=== PATIENT | male | born 1960 | race Caucasian/White ===

== ENCOUNTER 2018-03-03 21:42 | Observation (INO) | payer OTHER ==
[2018-03-03] MEDS ORDERED: ASPIRIN 81 MG CHEWABLE TABLETS PO ONE (21:50)
--- NOTE | 2018-03-03 21:51 | PDOC ---
Rapid Medical Evaluation Time Seen by Provider: 03/03/18 21:47 Medical Evaluation: Allergies Allergy/AdvReac Type Severity Reaction Status Date / Time No Known Allergies Allergy Verified 12/08/13 00:58 patient presents with a chief complaint of left sided chest pain radiating down left arm for the past 2 hours. Admits it's worse with movement and deep breaths. Pertinent findings: reproducible chest wall pain with palpation of left chest wall Orders: EKG, CXR, labs, ASA Patient will proceed to the ER for further evaluation. Discharge Disposition - Diagnosis Chest pain - Referrals - Patient Instructions - Post Discharge Activity
[2018-03-03 21:55] VITALS: BMI 32.8
[2018-03-03 22:24] LABS: BASO % 0.6 % (0-2.0); EOS % 0.7 % (0-4.5); HEMOGLOBIN 14.3 GM/dL (11.7-16.9); LYMPH % 33.8 % (8-40); MCH 28.9 pg (25.7-33.7); MCHC 33.3 g/dl (32.0-35.9); MEAN CELL VOLUME 86.8 fl (80-96); MEAN PLT VOLUME 8.6 fl (7.5-11.1); MONO % 8.6 % (3.8-10.2); NEUT % 56.3 % (42.8-82.8); PLATELET COUNT 285 K/MM3 (134-434); RBC 4.95 M/mm3 (4.00-5.60); RDW 13.4 % (11.9-15.9); WHITE BLOOD COUNT 10.3 K/mm3 (4.0-10.0)
[2018-03-03] MEDS ORDERED: ASPIRIN 325 MG TABLET ONE (22:38)
[2018-03-03 22:57] LABS: ALK PHOS 89 U/L (45-117); ANION GAP 7 MMOL/L (8-16); BILIRUBIN,TOTAL 0.4 mg/dL (0.2-1); BLOOD UREA NITROGEN 29 mg/dL (7-18); CALCIUM 8.9 mg/dL (8.5-10.1); CHLORIDE 106 mmol/L (98-107); CO2 32 mmol/L (21-32); CREATININE 1.4 mg/dL (0.55-1.3); GLUCOSE,RANDOM 104 mg/dL (74-106); SGOT/AST 22 U/L (15-37); SGPT/ALT 29 U/L (13-61); SODIUM 144 mmol/L (136-145); TOT PROT 7.1 g/dl (6.4-8.2)
[2018-03-03] MEDS ORDERED: KETOROLAC TROMETHAMINE 30 MG/1 ML VIAL IM ONE (23:17)
--- NOTE | 2018-03-03 23:25 | PDOC ---
Attending Attestation - Resident Resident Name: MarquitaNat - ED Attending Attestation I have performed the following: I have examined & evaluated the patient, The case was reviewed & discussed with the resident, I agree w/resident's findings & plan, Exceptions are as noted - HPI HPI: 03/04/18 00:07 Patient is a 57 y/o male with a past medical history of HTN, HLD, and diabetes who presents to the emergency department for evaluation of left sided pleuritic chest pain radiating down left arm for the past 2 hours, exacerbated with movement. Pain started while pt was watching TV. Also reports SOB. Pain is worse with lying down. Denies recent URI sxs. Has no hx similar sxs. No recent travel or immobility. Has not seen a occupational therapy co director recently. Distant hx smoking. 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 Denies drug use. Took 1 ASA when pain occurred. - Physicial Exam PE: 03/04/18 00:14 GENERAL: Awake, alert, and fully oriented, in no acute distress HEAD: No signs of trauma EYES: PERRLA, EOMI, sclera anicteric, conjunctiva clear ENT: Auricles normal inspection, hearing grossly normal, nares patent, oropharynx clear without exudates. Moist mucosa NECK: Normal ROM, supple, no lymphadenopathy, JVD, or masses LUNGS: Breath sounds equal, clear to auscultation bilaterally. No wheezes, and no crackles HEART: Regular rate and rhythm, normal S1 and S2, no murmurs, rubs or gallops ABDOMEN: Soft, nontender, normoactive bowel sounds. No guarding, no rebound. No masses EXTREMITIES: Normal range of motion, no edema. No clubbing or cyanosis. No cords, erythema, or tenderness NEUROLOGICAL: Normal speech, cranial nerves intact, negative pronator drift, 5/ 5 strength in all 4 extremities, normal sensation to light touch in all 4 extremities, normal cerebellar exam, normal gait, normal reflexes and tone SKIN: Warm, Dry, normal turgor, no rashes or lesions noted. - Medical Decision Making 03/04/18 00:15 57-year-old male with a history of hypertension, hyperlipidemia, diabetes presents emergency Department with sudden onset left-sided chest pain radiating to the left arm. Vitals unremarkable. Exam unremarkable. EKG is nonischemic. Given risk factors and story, heart score is 5. PE is also on the differential, patient is low risk by well's criteria. D-dimer is pending. Will reassess. 03/04/18 01:02 pt admitted for further mgmt Case discussed in detail with admitting physician including history, physical exam and ancillary studies. Admitting physician has assumed care for the patient, will follow all pending diagnostics and will complete the evaluation and treatment. Heart Score/ECG Review - History History: Highly suspicious - Electrocardiogram EKG: Normal - Age Age: 45-65 - Risk Factors Based on the list above the patient has:: >/=3 risk factors or Hx atherosclerotic disease - Troponin Troponin: </= normal limit - Score Heart Score - Total: 5 #1 03/04/18 00:14 Twelve-lead EKG was performed and reviewed by me. Normal sinus rhythm, rate 82. Normal axis and intervals. No ST elevations. T wave flattening in lead 3.
--- NOTE | 2018-03-03 23:46 | PDOC ---
History of Present Illness - General Chief Complaint: Pain Stated Complaint: CHEST PAIN Time Seen by Provider: 03/03/18 21:47 History Source: Patient Exam Limitations: No Limitations - History of Present Illness Initial Comments: 03/03/18 23:40 HPI: Pt is a 57yo m with PMH of HTN, HLD, DM presenting to ED for chest pain x2h. Pt said he was watching TV when he felt a sudden sharp pain on the L side of his chest associated with numbness and tingling down his left arm. Pain radiates to the left side of his back, and is worsened with breathing and movements. Pt said he took 3 Advil Liquigels which he is unsure if it helped him. He denies diaphoresis during the event. Since pain is illicited when he takes breaths, pt feels like he is short of breath. He denies neck pain, headache, changes in vision, n/v/d, abdominal pain, fevers, chills, cough, leg swelling, calf pain. No hx of SC or CVA. Uncle had an SC. No recent surgeries, or travel, no history of cancer. He never had pain like this before. PCP: Dr. Lee PMH: As per HPI. PSH: cholecystectomy, splenectomy Meds: None Allergies: None Known Social: quit smoking 18 years ago Past History - Past Medical History Allergies/Adverse Reactions: Allergies Allergy/AdvReac Type Severity Reaction Status Date / Time No Known Allergies Allergy Verified 03/03/18 21:47 Home Medications: Ambulatory Orders Amlodipine/Valsartan [Exforge 5-160 mg Tablet] 1 tab PO DAILY 12/08/13 Lovastatin 20 mg PO DAILY 12/08/13 levoFLOXacin [Levaquin -] 500 mg PO DAILY #4 tablet 12/17/13 metroNIDAZOLE [Flagyl -] 500 mg PO TID #10 tablet 12/17/13 Anemia: No Asthma: No Cardiac Disorders: No COPD: No CHF: No Diabetes: Yes (Pre-diabetic) HTN: Yes Hypercholesterolemia: Yes Liver Disease: No - Surgical History Abdominal Surgery: Yes (Splenectomy) - Family Disease History Family Disease History: CA: Mother (lung cancer), Respiratory: Father (emphysema ) - Immunization History Immunization Up to Date: No - Suicide/Smoking/Psychosocial Hx Smoking History: Never smoked Have you smoked in the past 12 months: No Information on smoking cessation initiated: No Hx Alcohol Use: No Drug/Substance Use Hx: No Substance Use Type: None Hx Substance Use Treatment: No Review of Systems - Review of Systems Able to Perform ROS?: Yes Comments:: 03/03/18 23:46 ROS: Constitutional: No fevers, chills, fatigue, malaise HEENT: No visual changes, headache, neck pain Cardiovascular:chest pain. NO syncope, edema Respiratory: SOB. No Cough, Hemoptysis Gastrointestinal: No Abdominal pain, Nausea, Vomiting, Constipation, Diarrhea Genitourinary: No Dysuria, Frequency Musculoskeletal: L chest pain. Neurologic: Numbness/tingling in L hand. No Headache, Dizziness, Weakness *Physical Exam - Vital Signs Last Vital Signs Temp Pulse Resp BP Pulse Ox 97.9 F 90 20 133/91 97 03/03/18 21:48 03/03/18 21:48 03/03/18 21:48 03/03/18 21:48 03/03/18 21:48 - Physical Exam Comments: 03/03/18 23:48 Physical Exam: Pt in bed, looked uncomfortable. General Appearance: Nourished. HEENT: Atraumatic, normocephalic, EOMI, YESSICA, No Conjunctival Injection, Scleral Icterus, Pharyngeal Erythema, Tonsillar Exudate, Tonsillar Erythema. Neck: No Cervical Lymphadenopathy, No tracheal deviation Respiratory/Chest: Lungs Clear, Normal Breath Sounds. No Crackles, Rales, Rhonchi, Wheezing Cardiovascular: Regular Rhythm, Regular Rate, Peripheral pulses palpable bilaterally. No JVD, Murmur, Gallops, Rubs, Carotid Bruit, Edema, Gastrointestinal/Abdominal: Normal Bowel Sounds, Soft. No Guarding, Rebound, Tenderness Musculoskeletal: Restricted ROM in L arm due to pain. L chest wall tender to palpation. No CVA Tenderness Extremity: Normal Capillary Refill Integumentary: Normal Color, Dry, Warm. No rashes, lesions Neurologic: prenatal nurse II-XII NML intact, Fully Oriented, Alert, Normal Mood/Affect, Normal Response, Motor Strength 5/5, Full sensation, 2+ Reflexes Heart Score/ECG Review - History History: Highly suspicious - Electrocardiogram EKG: Normal - Age Age: 45-65 - Risk Factors Risk Factors Heart Score: Yes Hx Hypercholesterolemia, Yes Hx Hypertension, Yes Hx Diabetes Based on the list above the patient has:: >/=3 risk factors or Hx atherosclerotic disease - Troponin Troponin: </= normal limit - Score Heart Score - Total: 5 ED Treatment Course - LABORATORY CBC & Chemistry Diagram: 03/03/18 22:10 03/03/18 22:10 - ADDITIONAL ORDERS Additional order review: Laboratory Results 03/03/18 22:10 Sodium 144 Potassium 4.0 Chloride 106 Carbon Dioxide 32 Anion Gap 7 L BUN 29 H Creatinine 1.4 H Creat Clearance w eGFR 51.87 Random Glucose 104 Calcium 8.9 Total Bilirubin 0.4 AST 22 ALT 29 Alkaline Phosphatase 89 Creatine Kinase 167 Creatine Kinase Index 1.5 CK-MB (CK-2) 2.6 Troponin I < 0.02 Total Protein 7.1 Albumin 4.0 03/03/18 22:10 RBC 4.95 MCV 86.8 MCHC 33.3 RDW 13.4 MPV 8.6 Neutrophils % 56.3 D Lymphocytes % 33.8 D Monocytes % 8.6 Eosinophils % 0.7 Basophils % 0.6 - Medications Given in the ED: ED Medications Discontinued Medications Generic Name Dose Route Start Last Admin Trade Name Freq PRN Reason Stop Dose Admin Aspirin 324 mg 03/03/18 21:50 03/03/18 22:50 Asa - PO 03/03/18 21:51 324 mg ONCE ONE Administration Medical Decision Making - Medical Decision Making 03/04/18 00:26 57yo m with PMH of htn, hld, dm presenting to ED with sudden onset CP that started while he was watching tv. pain is left sided radiates to his back and is associated with l arm numbness/tingling. Pleuritic in nature and movement illicits pain. Vitals: wnl, afebrile PE: L chest wall tender to palpation Labs, ekg and cxr ordered by RME. EKG: nsr, no eduardo or depressions, T wave inversion in V1, flattened T in III. normal pr and qt, narrow qrs. Trop negative. CXR: compared to prior, no acute changes. Labs: WBC- 10.3, troponin negative, all other labs wnl. Pt given ASA in ED and orderd Toradol for pain. Due to pleuritic nature of chest pain, PERC positive and low risk Wells, will order D-dimer to rule out PE. HEART score of 5, pt will be admitted obs if D-dimer negative. 03/04/18 00:36 D-dimer negative. Will admit pt to tele/obs due to nature of chest pain and risk factors. Pt admitted to hospitalist, will be transferred to Dr. Alexia benavides in the morning. *DC/Admit/Observation/Transfer Diagnosis at time of Disposition: Chest pain Qualifiers: Chest pain type: unspecified Qualified Code(s): R07.9 - Chest pain, unspecified - Discharge Dispostion Condition at time of disposition: Stable Decision to Admit order: Yes - Referrals Referrals: Kelby Lee MD [Primary Care Provider] - - Patient Instructions - Post Discharge Activity
[2018-03-04] MEDS ORDERED: KETOROLAC TROMETHAMINE 30 MG/1 ML VIAL ONE ×2 (00:08→13:22)
--- NOTE | 2018-03-04 01:12 | HP ---
CHIEF COMPLAINT: Chest Pain PCP: Dr. Queenie Lee HISTORY OF PRESENT ILLNESS: 57 y/o man with a past medical history of Hypertension, Hyperlipidemia, Pre- Diabetes. Who presents to the ED with lest sided chest pain with radiation to the L- arm and back 2hrs prior to arrival. Patient reports pain increases on movement, and on deep inspiration. 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 Patient denies fever, chills, cough, palpitations, N/V/D, constipation, dysuria. ER course was notable for: (1) Trop I < 0.02 (2) EKG- NSR no LYNDON, TWI lead V, flattened T in III (3) Chest Xray image no infiltrate or effusion Recent Travel: None PAST MEDICAL HISTORY: HTN HLD Pre-Diabetes Morbid Obesity BMI 32.9 (with Co-Morbidities) PAST SURGICAL HISTORY: Cholecystectomy Splenectomy Social History: Smoking: Tobacco, former 18 yrs ago Alcohol: Denies use Drugs: Denies use Family History: Father: Emphysema Mother: Lung Ca Uncle: MA Allergies No Known Allergies Allergy (Verified 03/03/18 21:47) HOME MEDICATIONS: Home Medications Medication Instructions Recorded Amlodipine/Valsartan [Exforge 1 tab PO DAILY 12/08/13 5-160 mg Tablet] Lovastatin 20 mg PO DAILY 12/08/13 levoFLOXacin [Levaquin -] 500 mg PO DAILY #4 tablet 12/17/13 metroNIDAZOLE [Flagyl -] 500 mg PO TID #10 tablet 12/17/13 REVIEW OF SYSTEMS CONSTITUTIONAL: Absent: fever, chills, diaphoresis, generalized weakness, malaise, loss of appetite, weight change HEENT: Absent: rhinorrhea, nasal congestion, throat pain, throat swelling, difficulty swallowing, mouth swelling, ear pain, eye pain, visual changes CARDIOVASCULAR: chest pain Absent: syncope, palpitations, irregular heart rate, lightheadedness, peripheral edema RESPIRATORY: shortness of breath Absent: cough, dyspnea with exertion, orthopnea, wheezing, stridor, hemoptysis GASTROINTESTINAL: Absent: abdominal pain, abdominal distension, nausea, vomiting, diarrhea, constipation, melena, hematochezia GENITOURINARY: Absent: dysuria, frequency, urgency, hesitancy, hematuria, flank pain, genital pain MUSCULOSKELETAL: back pain, Left arm pain Absent: myalgia, arthralgia, joint swelling, neck pain SKIN: Absent: rash, itching, pallor HEMATOLOGIC/IMMUNOLOGIC: Absent: easy bleeding, easy bruising, lymphadenopathy, frequent infections ENDOCRINE: Absent: unexplained weight gain, unexplained weight loss, heat intolerance, cold intolerance NEUROLOGIC: paresthesias Absent: headache, focal weakness, dizziness, unsteady gait, seizure, mental status changes, bladder or bowel incontinence PSYCHIATRIC: Absent: anxiety, depression, suicidal or homicidal ideation, hallucinations. PHYSICAL EXAMINATION Vital Signs - 24 hr 03/03/18 21:48 Temperature 97.9 F Pulse Rate 90 Respiratory 20 Rate Blood Pressure 133/91 O2 Sat by Pulse 97 Oximetry (%) GENERAL: Awake, alert, and fully oriented, in no acute distress. HEAD: Normal with no signs of trauma. EYES: Pupils equal, round and reactive to light, extraocular movements intact, sclera anicteric, conjunctiva clear. No lid lag. EARS, NOSE, THROAT: Ears normal, nares patent, oropharynx clear without exudates. Moist mucous membranes. NECK: Normal range of motion, supple without lymphadenopathy, JVD, or masses. LUNGS: Breath sounds equal, clear to auscultation bilaterally. No wheezes, and no crackles. No accessory muscle use. HEART: Regular rate and rhythm, normal S1 and S2 without murmur, rub or gallop. CP reproducible on palpation ABDOMEN: Obese, soft, nontender, not distended, normoactive bowel sounds, no guarding, no rebound, no masses. No hepatomegaly or splenomegaly. MUSCULOSKELETAL: Normal range of motion at RUE, RLE, LLE joints. No bony deformities or tenderness. No CVA tenderness. +LROM of LUE UPPER EXTREMITIES: 2+ pulses, warm, well-perfused. No cyanosis. No clubbing. No peripheral edema. LOWER EXTREMITIES: 2+ pulses, warm, well-perfused. No calf tenderness. No peripheral edema. NEUROLOGICAL: Cranial nerves II-XII intact. Normal speech. Gait not observed. PSYCHIATRIC: Cooperative. Good eye contact. Appropriate mood and affect. SKIN: Warm, dry, normal turgor, no rashes or lesions noted, normal capillary refill. Laboratory Results - last 24 hr 03/03/18 03/03/18 03/03/18 22:10 22:10 22:32 WBC 10.3 H RBC 4.95 Hgb 14.3 Hct 43.0 MCV 86.8 MCH 28.9 MCHC 33.3 RDW 13.4 Plt Count 285 D MPV 8.6 Absolute Neuts (auto) 5.8 Neutrophils % 56.3 D Lymphocytes % 33.8 D Monocytes % 8.6 Eosinophils % 0.7 Basophils % 0.6 Nucleated RBC % 0 D-Dimer < 200 Sodium 144 Potassium 4.0 Chloride 106 Carbon Dioxide 32 Anion Gap 7 L BUN 29 H Creatinine 1.4 H Creat Clearance w eGFR 51.87 Random Glucose 104 Calcium 8.9 Total Bilirubin 0.4 AST 22 ALT 29 Alkaline Phosphatase 89 Creatine Kinase 167 Creatine Kinase Index 1.5 CK-MB (CK-2) 2.6 Troponin I < 0.02 Total Protein 7.1 Albumin 4.0 ASSESSMENT/PLAN: This is a 57 y/o man with a PMHx of: HTN, HLD, Pre-Diabetes. Who presents to the ED with Pleuritic Chest Pain x last night. Placed in Tele Observation for Chest Pain for further evaluation of their emergent condition. FEN PO fluids as tolerated Replete lytes prn Low Na, Low Cholesterol Diet Code Status: Full Code Dispo: Observation Problem List - Problem (1) Chest pain Assessment/Plan: - r/o ACS - HEART Score 5 - MARIA INES Score 1 - Cardiac monitoring - Serial Enzymes - Chest Xray image reviewed - Appreciate Cardiology consult - Echo today - Lipid panel, HgbA1c, Mg, Phos in am - Continue Asa Code(s): R07.9 - CHEST PAIN, UNSPECIFIED Qualifiers: Chest pain type: unspecified Qualified Code(s): R07.9 - Chest pain, unspecified (2) Hypertension Assessment/Plan: - sub optimal - Monitor BP - Continue home med - Monitor renal function - Low Na Diet Code(s): I10 - ESSENTIAL (PRIMARY) HYPERTENSION (3) Pre-diabetes Assessment/Plan: - controlled - BGMs - Continue Metformin Code(s): R73.03 - PREDIABETES (4) Hyperlipidemia Assessment/Plan: - Lipid panel in AM - Continue Lovastatin - Monitor LFTs Code(s): E78.5 - HYPERLIPIDEMIA, UNSPECIFIED (5) DVT prophylaxis Assessment/Plan: - OOB - SCDs - Consider AC if LOS > 48 hrs Code(s): RKY9901 - Visit type - Emergency Visit Emergency Visit: Yes ED Registration Date: 03/03/18 Care time: The patient presented to the Emergency Department on the above date and was hospitalized for further evaluation of their emergent condition. - New Patient This patient is new to me today: Yes Date on this admission: 03/04/18 - Critical Care Critical Care patient: No
[2018-03-04 06:45] LABS: BASO % 0.6 % (0-2.0); EOS % 1.6 % (0-4.5); HEMATOCRIT 42.1 % (35.4-49); HEMOGLOBIN 13.9 GM/dL (11.7-16.9); LYMPH % 38.2 % (8-40); MCH 28.9 pg (25.7-33.7); MEAN CELL VOLUME 87.6 fl (80-96); MEAN PLT VOLUME 8.9 fl (7.5-11.1); MONO % 8.5 % (3.8-10.2); NEUT % 51.1 % (42.8-82.8); PLATELET COUNT 247 K/MM3 (134-434); RDW 13.4 % (11.9-15.9); WHITE BLOOD COUNT 8.1 K/mm3 (4.0-10.0)
[2018-03-04 07:07] LABS: ANION GAP 9 MMOL/L (8-16); BLOOD UREA NITROGEN 32 mg/dL (7-18); CALCIUM 8.5 mg/dL (8.5-10.1); CHLORIDE 109 mmol/L (98-107); CO2 25 mmol/L (21-32); GLUCOSE,RANDOM 112 mg/dL (74-106); MAGNESIUM 2.1 mg/dL (1.8-2.4); N-TERMINAL BNP 9.5 pg/ml (5-125); PHOSPHOROUS 3.8 mg/dL (2.5-4.9); POTASSIUM 3.7 mmol/L (3.5-5.1); SODIUM 143 mmol/L (136-145)
[2018-03-04 09:09] LABS: CHOLESTEROL 144 mg/dL (50-200); HDL CHOLESTEROL 27 mg/dL (40-60); TRIGLYCERIDES 461 mg/dL (0-150)
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
[2018-03-04] MEDS ORDERED: PATIENT'S OWN MEDICATION (NON-FORMULARY) (Amlodipine/Valsartan [Exforge 5-160 Mg Tablet] 1 PO SCH (10:00)
--- NOTE | 2018-03-04 10:07 | EKG ---
Test Reason : Blood Pressure : / mmHG Vent. Rate : 079 BPM Atrial Rate : 079 BPM P-R Int : 152 ms QRS Dur : 084 ms QT Int : 366 ms P-R-T Axes : 037 010 009 degrees QTc Int : 419 ms NORMAL SINUS RHYTHM NORMAL ECG WHEN COMPARED WITH ECG OF 09-DEC-2013 08:50, NO SIGNIFICANT CHANGE WAS FOUND Confirmed by CHRISTINA ORNELAS MD ([id number]) on 03/04/2018 10:06:41 AM Referred By: Confirmed By:CHRISTINA ORNELAS MD
[2018-03-04] MEDS ORDERED: amLODIPine BESYLATE 5 MG TABLET (FP) PO SCH ×2 (10:30→12:10)
[2018-03-04] MEDS ORDERED: VALSARTAN 160 MG TABLET (UD) PO SCH ×2 (10:30→13:00)
[2018-03-04] MEDS ORDERED: KETOROLAC TROMETHAMINE 30 MG/1 ML VIAL IVPUSH ONE (13:00)
[2018-03-04] MEDS ORDERED: CHLORTHALIDONE 25 MG TABLET PO SCH (13:00)
--- NOTE | 2018-03-04 14:53 | DS ---
Physical Examination Vital Signs: Vital Signs Temperature 98.3 F 03/04/18 00:15 Pulse Rate 70 03/04/18 06:08 Respiratory Rate 17 03/04/18 06:08 Blood Pressure 127/95 03/04/18 06:08 O2 Sat by Pulse Oximetry (%) 96 03/04/18 06:08 Constitutional: Yes: Well Nourished, No Distress, Calm Cardiovascular: Yes: WNL, Regular Rate and Rhythm, Other (mild ttp, left chest wall). No: Murmur Respiratory: Yes: WNL, Regular, CTA Bilaterally. No: Accessory Muscle Use, Tachypnea Gastrointestinal: Yes: WNL, Normal Bowel Sounds, Soft. No: Distention, Tenderness Renal/: Yes: WNL Musculoskeletal: Yes: WNL Extremities: Yes: WNL Edema: No Labs: CBC, BMP 03/04/18 06:00 03/04/18 06:00 Discharge Summary Reason For Visit: CHEST PAIN Current Active Problems Chest pain (Acute) Pre-diabetes (Acute) Hospital Course: 57 year old male admitted for evaluation of chest pain. all work up negative. pt evaluated by cardiology, trops negative, ekg without changes, echo neg. chest pain appears somewhat musculoskeletal in nature as it is reproducible. Considering pt's cardiac risk factors, recommend outpt cardiology follow up. Otherwise, pt is medically stable for discharge from hospital. F/u as directed. Condition: Stable - Instructions Diet, Activity, Other Instructions: may take motrin as needed for pain, take with food diabetic diet f/u as directed Referrals: Kelby Lee MD [Primary Care Provider] - 1 Week Aysha Wallace MD [Staff Physician] - 2 Weeks Disposition: HOME - Home Medications Comprehensive Discharge Medication List: Ambulatory Orders Amlodipine/Valsartan [Exforge 5-160 mg Tablet] 1 tab PO DAILY 12/08/13 Lovastatin 20 mg PO DAILY 12/08/13 Chlorthalidone [Hygroton -] 25 mg PO DAILY tablet 03/04/18 Metformin HCl [Metformin HCl ER] 500 mg PO DAILY 03/04/18
[2018-03-04 19:05] VITALS: BP 133/95; PULSE 82; TEMP 97.7
[2018-03-04] MEDS ORDERED: PATIENT'S OWN MEDICATION (NON-FORMULARY) (Lovastatin [Lovastatin] 20 MG) PO SCH (22:00)
[2018-03-05] MEDS ORDERED: amLODIPine BESYLATE 10 MG TABLET (FP) PO SCH (07:29)
--- NOTE | 2018-03-05 15:08 | ECHO ---
Version: 1 Name: VIOLETA DEL CID Exam: Adult Echocardiogram Study Date: 03/04/2018, 7:58 AM Age: 57 Years MMode/2D Measurements & Calculations IVSd: 1.06 cm LVIDs: 2.8 cm LVIDd: 4.0 cm LVPWd: 1.00 cm Ao root diam: 2.24 cm LA dimension: 3.0 cm Doppler Measurements & Calculations MV E max junior: 82.9 cm/sec Med E/e': 12.3 MV A max junior: 94.1 cm/sec Med Peak E' Junior: 6.7 cm/sec MV E/A: 0.88 Lat E/e': 8.3 Lat Peak E' Junior: 10.0 cm/sec Procedure A two-dimensional transthoracic echocardiogram with color flow and Doppler was performed. Left Ventricle The left ventricular size, thickness and function are normal. The left ventricular ejection fraction is normal. E/A reversal consistent with but not diagnostic of poor LV compliance. The left ventricular wall motion is normal. Right Ventricle The right ventricle is not well visualized. Atria Normal left and right atrial size and function. Mitral Valve There is mild mitral valve thickening. There is no mitral valve stenosis. There is trace to mild kelly ral regurgitation. Tricuspid Valve There is mild tricuspid valve thickening. There is no tricuspid stenosis. There was insufficient TR detected to calculate RV systolic pressure. Aortic Valve The aortic valve is normal in structure and function. No hemodynamically significant valvular aortic stenosis. No aortic regurgitation is present. Pulmonic Valve The pulmonic valve is not well visualized. There is no pulmonic valvular stenosis. There is no pulmo susanne valvular regurgitation. Great Vessels The aortic root is normal size. Pericardium/Pleura There is no pericardial effusion. Summary Statements The left ventricular size, thickness and function are normal The left ventricular ejection fraction is normal. The left ventricular wall motion is normal. E/A reversal consistent with but not diagnostic of poor LV compliance There is trace to mild mitral regurgitation. There was insufficient TR detected to calculate RV systolic pressure. MD Kenneth Rivero 03/05/2018, 3:07 PM Ordering Physician: Mitzi Gant Performed By: MANJEET
== END 2018-03-04 22:14 | disposition home or self-care (01) ==
LOC: JER 21:42 → JERBED 03-04 00:36 → UNDOADMOB 03-04 01:32 → JERBED 03-04 01:32
PROVIDERS: ADMIT Internal Medicine; ATTEND Internal Medicine
PROC: 3E0333Z Introduction of Anti-inflammatory into Peripheral Vein, Percutaneous Approach (ICD-10-PCS; principal; 2018-03-04)
DX: R07.9 Chest pain, unspecified (principal); I10 Essential (primary) hypertension; E78.5 Hyperlipidemia, unspecified; R73.03 Prediabetes
CPT/HCPCS: 36415; 71045-TC-FY; 80048; 80053; 80061; 82550; 82553; 83036; 83721; 83735; 83880; 84100; 84484; 85025; 85379; 93005; 93010; 93306-TC; 96374; 96376; 99283-25; G0378

== ENCOUNTER 2018-03-17 06:54 | Inpatient (IN) | payer OTHER ==
[2018-03-09 16:19] VITALS: BMI 31.3
[2018-03-17] MEDS ORDERED: VANCOMYCIN 1,000 MG VIAL (RESTRICTED TO ID ONLY) ONE (07:10)
[2018-03-17] MEDS ORDERED: ceFAZolin SODIUM 1 GM VIAL ONE ×2 (07:10→09:46)
[2018-03-17] MEDS ORDERED: CEFAZOLIN 2 GM in DEXTROSE 5%-WATER - 50 ML IVPB ONE (07:51)
[2018-03-17] MEDS ORDERED: TRANEXAMIC ACID 1000 MG/10 ML VIAL IVPUSH ONE (07:51)
--- NOTE | 2018-03-17 08:00 | HP ---
[facility] - Chief Complaint Chief Complaint: right knee pain - Past Medical History Allergies/Adverse Reactions: Allergies Allergy/AdvReac Type Severity Reaction Status Date / Time No Known Allergies Allergy Verified 03/03/18 21:47 Cardiovascular: Yes: HTN, Hyperlipdemia - Current Medications Current Medications: Home Medications Medication Instructions Recorded Amlodipine/Valsartan [Exforge 1 tab PO DAILY 12/08/13 5-160 mg Tablet] Chlorthalidone [Hygroton -] 25 mg PO DAILY tablet 03/04/18 Metformin HCl [Metformin HCl ER] 500 mg PO DAILY 03/04/18 Atorvastatin Ca [Lipitor] 20 mg PO HS 03/09/18 Ferrous Sulfate [Iron] 325 mg PO DAILY 03/09/18 Nugenix 1 tab PO DAILY 03/09/18 [facility]ellite Physical Exam - Physical Examination General Appearance: Well Nourished, Well Developed, Alert & Oriented x3 ENT: Clear Lung: Normal air movement Heart: Regular rate & rhythm Extremities: Other (right knee- + swelling, + ttp ,dec rom, nvi xrays show grade 4 tricompartmental djd) Neurological: Intact, Alert, Oriented Satellite Impression/Plan - Impression/Plan Impression: right knee djd Operative Procedure: right chey tkr Date to be Performed: 03/17/18
[2018-03-17] MEDS: oxyCODONE HCL 10 MG SUSTAINED ACTING TABLET PO ONE (08:15)
[2018-03-17] MEDS: GABAPENTIN 300 MG CAPSULE (FP) PO ONE (08:15)
[2018-03-17] MEDS: CELECOXIB 200 MG CAPSULE PO ONE (08:15)
[2018-03-17] MEDS ORDERED: MIDAZOLAM HCL 2 MG/2 ML SINGLE DOSE VIAL ONE (08:57)
[2018-03-17] MEDS ORDERED: SODIUM CHLORIDE 0.9% P/F 10 ML VIAL IJ ONE ×2 (08:57→09:56)
[2018-03-17] MEDS ORDERED: BUPIVACAINE LIPOSOME/PF (EXPAREL) 266 MG/20 ML VIAL ONE (08:57)
[2018-03-17] MEDS ORDERED: TRANEXAMIC ACID 1000 MG/10 ML VIAL ONE ×2 (09:46→11:11)
[2018-03-17] MEDS ORDERED: PROPOFOL 20 ML ONE ×3 (09:52→10:57)
[2018-03-17] MEDS ORDERED: VANCOMYCIN 1,000 MG VIAL (RESTRICTED TO ID ONLY) IVPB ONE (11:10)
[2018-03-17] MEDS ORDERED: MAG HYDROX/AL HYDROX/SIMETH 30 ML UNIT-DOSE CUP PO PRN (11:38)
[2018-03-17] MEDS ORDERED: ONDANSETRON 4 MG/2 ML VIAL IVPUSH PRN (11:38)
[2018-03-17] MEDS ORDERED: MAGNESIUM HYDROX 2400MG/30ML ORAL SUSPENSION 30 ML CUP PO PRN (11:38)
--- NOTE | 2018-03-17 11:41 | OP ---
Operative Note - Note: Operative Date: 03/17/18 (jeanne) Pre-Operative Diagnosis: right knee djd Operation: right chey tkr, removal of hardware Post-Operative Diagnosis: Same as Pre-op Surgeon: Sorin Granados Phlebotomy Services Representative: Gian Hahn Anesthesiologist/BULK PLANT SUPERVISOR: Sury Boyd Anesthesia: Spinal, Local Specimens Removed: bone fragments, 1 screw Estimated Blood Loss (mls): 150 Operative Report Dictated: Yes
[2018-03-17] MEDS ORDERED: LACTATED RINGERS SOLUTION 1,000 ML IV SCH (11:45)
[2018-03-17] MEDS ORDERED: ONDANSETRON 4 MG/2 ML VIAL IVPUSH ONE ×2 (11:50)
[2018-03-17] MEDS ORDERED: ACETAMINOPHEN 1000 MG/100 ML VIAL (NON FORMULARY) IVPB ONE ×3 (12:00→12:15)
[2018-03-17] MEDS ORDERED: oxyCODONE HCL 5 MG TABLET PO ONE ×2 (12:20)
[2018-03-17] MEDS ORDERED: oxyCODONE HCL 5 MG TABLET ONE (12:52)
--- NOTE | 2018-03-17 13:43 | OP ---
DATE OF OPERATION: 03/17/2018 PREOPERATIVE DIAGNOSIS: Degenerative joint disease, right knee. POSTOPERATIVE DIAGNOSIS: Degenerative joint disease, right knee. PROCEDURE: Press-fit right total knee replacement with removal of hardware (MAKOplasty) and removal of hardware, right knee. SURGICAL ATTENDING: Sorin Granados MD PEER SUPPORT SPECIALIST: RICCARDO Willis ANESTHESIA: Regional and spinal. CLOSURE: Triathlon press-fit knee system with a 4 femur, 5 tibia, 9 polyethylene, 35 patella, No. 1 Vicryl to fascia, 0 and 2-0 to subcutaneous, 3-0 Monocryl subcuticular with skin glue, 4-0 undyed Vicryl for pin sites. ESTIMATED BLOOD LOSS: Less than 100 mL. COMPLICATIONS: None. CONDITION: To recovery in stable condition. DESCRIPTION OF OPERATIVE PROCEDURE: Patient was taken to the operating room on March 17, 2018. Spinal and regional anesthesia was administered by the anesthesiologist. IV Kefzol and TXA were administered prophylactically prior to the case. The right lower extremity was prepped and draped in the usual sterile fashion. A 12-cm longitudinal midline incision was centered over the patella. It was incised. Hemostasis achieved with Bovie cautery. This incision was made through the previous incisions from his previous surgery many years before. Sharp dissection was carried down to the extensor mechanism. medially and laterally perform the procedure. Medial parapatellar arthrotomy was then performed, and the patella was inverted, and the knee was flexed up to 90 degrees. A subperiosteal dissection was done on the anteromedial proximal tibia until the tibia was able to be brought forward. This was facilitated by taking the meniscal remnants and what was left of his anterior and posterior cruciate ligaments. Checkpoints were malleted in both the femur and the tibia. Two threaded pins were placed through the medial femoral condyle in oblique fashion from anterior to posterior heading towards the lateral femoral condyle. To these pins were fastened the femoral navigation array. Two small stab incisions one handbreadth below the tibial tubercle. Two threaded pins were drilled through the anterior cortex and then up and to and engaging but not through the posterior cortex tibia. These pins were fastened to tibial navigation array. The knee was then registered with the navigation device with the center of the rotation of the hip, medial and lateral malleoli, and multiple points both on the tibia and the femur. Excellent registration was confirmed by "popping the bubbles". The osteophytes were then removed circumferentially both medially and laterally on both the femur and the tibia. The knee was then taken through extension and 90 degrees of flexion and tensioned and through varus and valgus stress. These values were then used to virtually move the position of the components on the preoperative plan until an equal gap of 18/18 was obtained in both flexion and extension medially and laterally. The robot was then brought onto the field. The robot was used to cut the femur and the tibia to plan. The No. 4 box was used to cut the box in the femur. Spacer blocks on extension and flexion revealed equal tension of 18 mm in both flexion and in extension both medially and laterally. Trial components were then applied with a No. 4 femur achieving good line to line fit. The No. 5 tibia with a 9-mm insert was allowed to "find itself" and was put into place. This site a confirmed to be the ideal position with the navigation device assisting at the center of the knee. The patella was then calipered for thickness and osteotomized at the appropriate level. A 35 lollipop was used to drill the lug holes in the patella, and a trial button was applied. The knee was taken through a range of motion and found to go from full extension to full flexion with excellent tracking of the patella throughout with no undue tension both medially and laterally with excellent stability. The trial components were removed. The keyhole was punched in the tibia, and the lug holes were drilled in the femur. The knee was thoroughly irrigated with antibiotics irrigation. The real press-fit components were then malleted into place both on the femur and on the tibia and then the polyethylene liner was clipped into place. The patella press-fit button was then crimped into place. Range of motion, stability, and tracking were as described earlier. The knee was thoroughly antibiotic irrigated once again. Vancomycin powder was placed in the incision. The medial parapatellar arthrotomy was then closed using No. 1 Vicryl interrupted suture, 2-0 subcutaneous, and 3-0 Monocryl subcuticular with skin glue for the skin. The checkpoints and the pins were well removed. The pin sites in the distal tibia were closed with 4-0 undyed Vicryl afterward the site was thoroughly irrigated with antibiotic irrigation. A sterile Aquacel dressing followed by a Burns dressing was applied. X-rays revealed excellent position of the components. The patient was awakened from anesthesia and transferred to recovery in stable condition. No complications. Estimated blood loss negligible. SORIN GRANADOS M.D. [id number]
[2018-03-17] MEDS ORDERED: RACEPINEPHRINE IH SOL 2.25% 11.25 MG/0.5 ML VIAL NEB ONE (14:21)
[2018-03-17] MEDS: oxyCODONE HCL 5 MG TABLET PO PRN (15:05)
[2018-03-17] MEDS: CEFAZOLIN 2 GM/D5W 2 GM/50 ML ML IVPB SCH (17:44)
[2018-03-17] MEDS: oxyCODONE HCL 10 MG SUSTAINED ACTING TABLET PO SCH (21:27)
[2018-03-17] MEDS: SENNOSIDES/DOCUSATE COMBO (SENNA PLUS) TABLET (UD) PO SCH (21:28)
[2018-03-17] MEDS ORDERED: INSULIN (NOVOLOG) ASPART 100 UNITS/ML 10ML VIAL ONE (21:43)
[2018-03-17] MEDS: INSULIN SLIDING SCALE (NOVOLOG) 1 VIAL SQ SCH (21:47)
[2018-03-17] MEDS ORDERED: SENNOSIDES/DOCUSATE COMBO (SENNA PLUS) TABLET (UD) PO SCH (22:00)
[2018-03-18] MEDS: CEFAZOLIN 2 GM/D5W 2 GM/50 ML ML IVPB SCH (01:53)
[2018-03-18] MEDS: oxyCODONE HCL 5 MG TABLET PO PRN ×4 (02:41→21:08)
[2018-03-18] MEDS: INSULIN SLIDING SCALE (NOVOLOG) 1 VIAL SQ SCH ×4 (06:10→22:18)
[2018-03-18] MEDS: ASPIRIN 325 MG TABLET PO SCH (08:01)
[2018-03-18 08:09] LABS: HEMATOCRIT 38.5 % (35.4-49); HEMOGLOBIN 12.8 GM/dl (11.7-16.9); MCH 29.6 pg (25.7-33.7); MCHC 33.3 g/dl (32.0-35.9); MEAN CELL VOLUME 88.9 fl (80-96); MEAN PLT VOLUME 8.8 fl (7.5-11.1); PLATELET COUNT 329 K/MM3 (134-434); RBC 4.33 M/mm3 (4.00-5.60); RDW 12.5 % (11.9-15.9); WHITE BLOOD COUNT 13.5 K/mm3 (4.0-10.8)
--- NOTE | 2018-03-18 09:32 | PN ---
Progress Note (short form) - Note Progress Note: 58M POD1 s/p R TKR under spinal anesthetic with peripheral nerve blocks for post operative pain relief. Pt states that pain is well controlled and reports no anesthetic complications. AVSS. Motor and sensory function intact in bilateral lower extremities. Continue current regimen.
--- NOTE | 2018-03-18 09:53 | PN ---
Progress Note (short form) - Note Progress Note: Ortho Pt seen and examined s/p right chey tkr pod #1 Selected Entries 03/18/18 06:00 Temperature 98.1 F Pulse Rate 99 H Respiratory 18 Rate Blood Pressure 111/68 Laboratory Tests 03/18/18 07:30 WBC 13.5 H Hgb 12.8 Hct 38.5 Plt Count 329 dressing c/d/i, rom 0-50, calf soft nt, nvi a/p PT dvt ppx pain control d/c home tomorrow if stable
[2018-03-18] MEDS ORDERED: PATIENT'S OWN MEDICATION (NON-FORMULARY) (Ferrous Sulfate [Iron] 325 MG) PO SCH (10:00)
[2018-03-18] MEDS ORDERED: PATIENT'S OWN MEDICATION (NON-FORMULARY) (Metformin Hcl [Metformin Hcl Er] 500 MG) PO SCH (10:00)
[2018-03-18] MEDS ORDERED: PATIENT'S OWN MEDICATION (NON-FORMULARY) (Amlodipine/Valsartan [Exforge 5-160 Mg Tablet] 1 PO SCH (10:00)
[2018-03-18] MEDS: MULTIVITAMINS (DAILY MVI) TABLET (FP) PO SCH (10:17)
[2018-03-18] MEDS: VALSARTAN 160 MG TABLET (UD) PO SCH (10:17)
[2018-03-18] MEDS: amLODIPine BESYLATE 5 MG TABLET (FP) PO SCH (10:18)
[2018-03-18] MEDS: FERROUS SO4 325 MG TABLET (FP) PO SCH (10:18)
[2018-03-18] MEDS: PANTOPRAZOLE 40 MG TABLET (FP) PO SCH (10:18)
[2018-03-18] MEDS: ATORVASTATIN CA 20 MG TABLET (FP) PO SCH (10:18)
[2018-03-18] MEDS: oxyCODONE HCL 10 MG SUSTAINED ACTING TABLET PO SCH ×2 (10:18→21:07)
[2018-03-18] MEDS: CHLORTHALIDONE 25 MG TABLET PO SCH (10:19)
[2018-03-18] MEDS: SENNOSIDES/DOCUSATE COMBO (SENNA PLUS) TABLET (UD) PO SCH ×2 (10:20→21:08)
[2018-03-18] MEDS ORDERED: INSULIN (NOVOLOG) ASPART 100 UNITS/ML 10ML VIAL ONE ×2 (11:59→17:02)
[2018-03-18] MEDS ORDERED: ACETAMINOPHEN 325 MG TABLET (FP) ONE (22:56)
[2018-03-18] MEDS: ACETAMINOPHEN 325 MG TABLET (FP) PO PRN (23:14)
[2018-03-19 01:44] VITALS: PULSE 100
[2018-03-19] MEDS: oxyCODONE HCL 5 MG TABLET PO PRN (05:50)
[2018-03-19] MEDS: ACETAMINOPHEN 325 MG TABLET (FP) PO PRN (05:50)
[2018-03-19] MEDS ORDERED: INSULIN (NOVOLOG) ASPART 100 UNITS/ML 10ML VIAL ONE (06:36)
[2018-03-19] MEDS: INSULIN SLIDING SCALE (NOVOLOG) 1 VIAL SQ SCH ×3 (06:37→11:39)
[2018-03-19] MEDS: CELECOXIB 200 MG CAPSULE PO ONE (08:07)
[2018-03-19] MEDS: GABAPENTIN 300 MG CAPSULE (FP) PO ONE (08:07)
[2018-03-19] MEDS: oxyCODONE HCL 10 MG SUSTAINED ACTING TABLET PO ONE (08:08)
[2018-03-19 08:10] LABS: HEMATOCRIT 33.3 % (35.4-49); HEMOGLOBIN 11.7 GM/dl (11.7-16.9); MCH 31.1 pg (25.7-33.7); MCHC 35.3 g/dl (32.0-35.9); MEAN CELL VOLUME 88.1 fl (80-96); MEAN PLT VOLUME 8.6 fl (7.5-11.1); PLATELET COUNT 310 K/MM3 (134-434); RBC 3.77 M/mm3 (4.00-5.60); RDW 12.6 % (11.9-15.9); WHITE BLOOD COUNT 15.7 K/mm3 (4.0-10.8)
[2018-03-19] MEDS: ASPIRIN 325 MG TABLET PO SCH (08:12)
--- NOTE | 2018-03-19 08:13 | PN ---
Progress Note (short form) - Note Progress Note: Ortho Pt seen and examined s/p right chey tkr pod #2 Selected Entries 03/19/18 06:00 Temperature 98.9 F Pulse Rate 100 H Respiratory 18 Rate Blood Pressure 103/59 L Laboratory Tests 03/19/18 07:45 WBC Pending Hgb Pending Hct Pending Plt Count Pending dressing c/d/i, rom 0-50, calf soft nt, nvi a/p PT dvt ppx pain control d/c home today f/u in 1 week
--- NOTE | 2018-03-19 08:14 | DS ---
Physical Examination Vital Signs: Vital Signs Temperature 98.9 F 03/19/18 06:00 Pulse Rate 100 H 03/19/18 06:00 Respiratory Rate 18 03/19/18 06:00 Blood Pressure 103/59 L 03/19/18 06:00 O2 Sat by Pulse Oximetry (%) 93 L 03/19/18 06:00 Discharge Summary Reason For Visit: OSTEOARTHRITIS Procedures: Principal: right tkr Hospital Course: admitted for elective right chey tkr, uneventful post-op, stable for d/c Condition: Good - Instructions Diet, Activity, Other Instructions: Post-op Instructions-Total Knee Replacement Call the office for a follow-up appointment in 1 week - [phone] Aspirin 325mg daily for 6 weeks. Pain medication was sent into your pharmacy. Apply Graduated Compression Stockings (TEDs) to both lower extremities- remove daily for hygiene ONLY Apply Sequential Compression Device (SCDs) to both Lower extremities remove for PT and hygiene ONLY Apply cold packs to affected area for 15 minutes every 2 hours. Physical Therapist will come to your home for the first 5 days. You will be set up with outpatient PT at your first post-operative visit. Patient may ambulate as tolerated-encourage self care (at least every 2-3 hours while awake) with walker or cane Maintain Aquacel (waterproof) dressing to operative wound (will be removed by surgeon at first office visit) Shower with Aquacel dressing in place-if Aquacel integrity compromised, remove and apply dry sterile dressing and notify Orthopedist. DO NOT SHOWER unless Orthopedists approves without Aquacel dressing CONTACT THE OFFICE FOR ANY CHANGE IN YOUR CONDITION (for example-fever greater than 102 degrees, excessive bleeding from operative site, purulent drainage, severe swelling or pain) GO TO THE EMERGENCY ROOM IF THERE IS A MEDICAL EMERGENCY Knee Precautions: * Keep a rolled towel under affected heel while in bed or chair (to keep knee in extension) * Keep affected leg elevated except during mealtimes * DO NOT PLACE PILLOW UNDER AFFECTED KNEE * If you have any questions, please do not hesitate to call the office - . Referrals: Sorin Granados MD [Staff Physician] - Disposition: VNS/HOME HEALTH CARE - Home Medications Comprehensive Discharge Medication List: Ambulatory Orders Amlodipine/Valsartan [Exforge 5-160 mg Tablet] 1 tab PO DAILY 12/08/13 Chlorthalidone [Hygroton -] 25 mg PO DAILY tablet 03/04/18 Metformin HCl [Metformin HCl ER] 500 mg PO DAILY 03/04/18 Atorvastatin Ca [Lipitor] 20 mg PO DAILY 03/09/18 Ferrous Sulfate [Iron] 325 mg PO DAILY 03/09/18 Nugenix 1 tab PO DAILY 03/09/18 Aspirin [ASA -] 325 mg PO DAILY@0800 tablet 03/17/18 Oxycodone HCl/Acetaminophen [Percocet 5-325 mg Tablet -] 1 - 2 tab PO Q6H #50 tab MDD 8 03/17/18
[2018-03-19 09:23] VITALS: BP 106/58; TEMP 98.2
[2018-03-19] MEDS: FERROUS SO4 325 MG TABLET (FP) PO SCH (09:30)
[2018-03-19] MEDS: ATORVASTATIN CA 20 MG TABLET (FP) PO SCH (09:31)
[2018-03-19] MEDS: CHLORTHALIDONE 25 MG TABLET PO SCH (09:31)
[2018-03-19] MEDS: SENNOSIDES/DOCUSATE COMBO (SENNA PLUS) TABLET (UD) PO SCH (09:31)
[2018-03-19] MEDS: oxyCODONE HCL 10 MG SUSTAINED ACTING TABLET PO SCH (09:31)
[2018-03-19] MEDS: VALSARTAN 160 MG TABLET (UD) PO SCH (09:31)
[2018-03-19] MEDS: MULTIVITAMINS (DAILY MVI) TABLET (FP) PO SCH (09:31)
[2018-03-19] MEDS: amLODIPine BESYLATE 5 MG TABLET (FP) PO SCH (09:31)
[2018-03-19] MEDS: PANTOPRAZOLE 40 MG TABLET (FP) PO SCH (09:32)
--- NOTE | 2018-03-20 16:09 | PATH ---
Surgical Pathology Report Patient Name: VIOLETA DEL CID Med. Rec. #: [id number] /Age/Gender: 1960 (Age: 58) / M Account: [id number] Location: [facility] MED-SURG Taken: 03/17/2018 Received: 03/17/2018 Reported: 03/20/2018 Physicians: Sorin Granados M.D. Specimen(s) Received RIGHT KNEE BONE AND HARDWARE Clinical History Osteoarthritis right knee Final Diagnosis BONE, KNEE, RIGHT, TOTAL KNEE REPLACEMENT MAKOPLASTY AND REMOVAL OF HARDWARE: BONE WITH DEGENERATIVE JOINT DISEASE. FRAGMENTS OF REACTIVE SYNOVIUM AND FIBROADIPOSE TISSUE. SURGICAL HARDWARE. MACROSCOPIC DIAGNOSIS. Electronically Signed Erin Tavera M.D. Gross Description Received in formalin labeled "right knee bones and hardware," is an 11.0 x 9.5 x 2.0 cm aggregate of multiple portions of bone and soft tissue. The tibial plateau measures 8.0 x 4.7 x 1.4 cm. There is a 3.4 cm in length paige metallic screw present, attached to the tibial plateau. No areas of eburnation are identified. The articular surfaces are santillan-yellow and diffusely granular. The underlying trabecular bone is yellow and hard. Reporting Manager sections are submitted in one cassette, following decalcification. 03/19/2018 [facility]03/19/2018
== END 2018-03-19 12:57 | disposition home health service (06) | DRG 302 ==
LOC: FM/S 06:54
PROVIDERS: ADMIT Orthopaedic Surgery; ATTEND Orthopaedic Surgery
PROC: 0SRC0JZ Replacement of Right Knee Joint with Synthetic Substitute, Open Approach (ICD-10-PCS; principal; 2018-03-17 09:30)
DX: M17.11 Unilateral primary osteoarthritis, right knee (principal); I10 Essential (primary) hypertension; E78.5 Hyperlipidemia, unspecified
CPT/HCPCS: 36415; 73560-TC-RT-FY; 82962; 85027; 86803; 87389; 88305-TC; 88311-TC; 94760; 97116-GP; 97162-GP; J0131

== ENCOUNTER 2023-08-08 08:50 | Emergency (ER) | payer OTHER, MEDICARE ==
[2023-08-08 09:15] VITALS: RESP 18; BMI 34.4
[2023-08-08] MEDS ORDERED: KETOROLAC TROMETHAMINE 30 MG/1 ML VIAL IVPUSH ONE (09:17)
[2023-08-08] MEDS: SODIUM CHLORIDE 1,000 ML IV ONE (09:30)
[2023-08-08] MEDS: ACETAMINOPHEN 1000 MG/100 ML BAG IVPB ONE (09:40)
[2023-08-08] MEDS ORDERED: ACETAMINOPHEN INJECTION 100 ML IVPB ONE (09:42)
[2023-08-08 10:15] LABS: HEMATOCRIT 44.6 % (35.4-49); HEMOGLOBIN 15.2 G/dL (11.7-16.9); MCH 30.1 pg (25.7-33.7); MCHC 34.1 g/dl (32.0-35.9); MEAN CELL VOLUME 88.4 fl (80-96); MEAN PLT VOLUME 8.9 fl (7.5-11.1); PLATELET COUNT 287.1 10^3/uL (134-434); RBC 5.05 10^6/uL (4.00-5.60); RDW 14.7 % (11.9-15.9); WHITE BLOOD COUNT 10.5 10^3/uL (4.0-10.8)
[2023-08-08 10:22] LABS: ALBUMIN 4.4 g/dl (3.4-5.0); BILIRUBIN,TOTAL 0.6 mg/dl (0.2-1); CALCIUM 10.2 mg/dl (8.5-10.1); CREATININE 1.2 mg/dl (0.6-1.3); POTASSIUM 3.8 mmol/L (3.5-5.1); TOT PROT 6.8 g/dl (6.4-8.2)
[2023-08-08 10:43] LABS: PLATELET ESTIMATE ADEQUATE
[2023-08-08 11:16] LABS: CALCIUM OXALATE CRYSTALS MANY /hpf (NONE SEEN)
[2023-08-08 11:17] LABS: URINE MUCUS FEW
[2023-08-08 12:20] VITALS: BP 139/104; PULSE 80; TEMP 98.7
== END 2023-08-08 12:31 | disposition home or self-care (01) ==
LOC: FER 08:50
PROC: 3E033NZ Introduction of Analgesics, Hypnotics, Sedatives into Peripheral Vein, Percutaneous Approach (ICD-10-PCS; principal; 2023-08-08)
PROC: 3E0337Z Introduction of Electrolytic and Water Balance Substance into Peripheral Vein, Percutaneous Approach (ICD-10-PCS; 2023-08-08)
DX: M54.9 Dorsalgia, unspecified (principal); R10.9 Unspecified abdominal pain; R80.9 Proteinuria, unspecified
CPT/HCPCS: 36415; 74176-TC; 80053; 81003; 81015; 83690; 84484; 85027; 93005; 99285-25; J0131

== ENCOUNTER 2023-10-30 04:14 | Day surgery (SDC) | payer OTHER, MEDICARE ==
[2023-10-22 11:04] VITALS: BMI 32.8
[2023-10-30 08:21] VITALS: TEMP 97.1
[2023-10-30 08:54] VITALS: BP 136/94; PULSE 74; RESP 19
== END 2023-10-30 08:57 | disposition home or self-care (01) ==
LOC: JASU-ENDO 04:14
PROVIDERS: ATTEND Internal Medicine Gastroenterology
PROC: 0DB78ZX Excision of Stomach, Pylorus, Via Natural or Artificial Opening Endoscopic, Diagnostic (ICD-10-PCS; 2023-10-30)
PROC: 0DB68ZX Excision of Stomach, Via Natural or Artificial Opening Endoscopic, Diagnostic (ICD-10-PCS; 2023-10-30)
PROC: 0DB48ZX Excision of Esophagogastric Junction, Via Natural or Artificial Opening Endoscopic, Diagnostic (ICD-10-PCS; principal; 2023-10-30 08:00)
DX: K21.00 Gastro-esophageal reflux disease with esophagitis, without bleeding (principal); K22.2 Esophageal obstruction; K44.9 Diaphragmatic hernia without obstruction or gangrene; K29.50 Unspecified chronic gastritis without bleeding; K31.7 Polyp of stomach and duodenum; K29.80 Duodenitis without bleeding; I10 Essential (primary) hypertension; E11.9 Type 2 diabetes mellitus without complications
CPT/HCPCS: 82962; 88305-TC; 88342-TC

== ENCOUNTER 2023-11-27 04:39 | Day surgery (SDC) | payer OTHER, MEDICARE ==
[2023-10-31 11:39] VITALS: BMI 33.6
[2023-11-27 10:21] VITALS: RESP 18
[2023-11-27 11:10] VITALS: TEMP 98.4
[2023-11-27 11:48] VITALS: BP 140/88; PULSE 81
== END 2023-11-27 11:48 | disposition home or self-care (01) ==
LOC: JASU-ENDO 04:39
PROVIDERS: ATTEND Internal Medicine Gastroenterology
PROC: 0DBL8ZX Excision of Transverse Colon, Via Natural or Artificial Opening Endoscopic, Diagnostic (ICD-10-PCS; 2023-11-27)
PROC: 0DBP8ZX Excision of Rectum, Via Natural or Artificial Opening Endoscopic, Diagnostic (ICD-10-PCS; 2023-11-27)
PROC: 0DBK8ZX Excision of Ascending Colon, Via Natural or Artificial Opening Endoscopic, Diagnostic (ICD-10-PCS; principal; 2023-11-27 10:45)
DX: Z12.11 Encounter for screening for malignant neoplasm of colon (principal); D12.2 Benign neoplasm of ascending colon; D12.3 Benign neoplasm of transverse colon; D12.8 Benign neoplasm of rectum; K64.8 Other hemorrhoids; K57.30 Diverticulosis of large intestine without perforation or abscess without bleeding; I10 Essential (primary) hypertension; E11.9 Type 2 diabetes mellitus without complications; Z79.84 Long term (current) use of oral hypoglycemic drugs
CPT/HCPCS: 82962; 88305-TC

== ENCOUNTER 2024-10-12 07:18 | Day surgery (SDC) | payer OTHER, MEDICARE ==
[2024-10-11 10:45] VITALS: BMI 32.8
[2024-10-12] MEDS ORDERED: MIDAZOLAM HCL 2 MG/2 ML SINGLE DOSE VIAL ONE (11:39)
[2024-10-12] MEDS ORDERED: FENTANYL CITRATE/PF 50 MCG/ML VIAL ONE (11:39)
[2024-10-12] MEDS: MIDAZOLAM HCL 2 MG/2 ML SINGLE DOSE VIAL IVPUSH ONE ×2 (12:03→12:11)
[2024-10-12] MEDS: FENTANYL CITRATE/PF 50 MCG/ML VIAL IVPUSH ONE ×2 (12:03→12:11)
[2024-10-12 13:14] VITALS: RESP 18
[2024-10-12 14:27] VITALS: BP 134/81; PULSE 79; TEMP 98
== END 2024-10-12 14:05 | disposition home or self-care (01) ==
LOC: JRADIR 07:18
PROVIDERS: ATTEND Internal Medicine Hematology & Oncology
PROC: 07DR3ZX Extraction of Iliac Bone Marrow, Percutaneous Approach, Diagnostic (ICD-10-PCS; principal; 2024-10-12)
DX: D75.1 Secondary polycythemia (principal)
CPT/HCPCS: 20225; 77012-TC; 88300-TC